=== PATIENT | male | born 1980 | race Caucasian/White ===

== ENCOUNTER 2024-01-12 08:13 | Emergency (ER) | payer BC ==
[2024-01-12 08:18] VITALS: BP 142/78; PULSE 59; RESP 20; TEMP 98.4; BMI 25.1
[2024-01-12] MEDS ORDERED: DOXYCYCLINE HYCLATE 100 MG CAPSULE PO ONE (08:44)
[2024-01-12] MEDS: DOXYCYCLINE HYCLATE 100 MG CAPSULE PO ONE (08:48)
== END 2024-01-12 09:58 | disposition home or self-care (01) ==
LOC: JERFT 08:13
DX: S61.051A Open bite of right thumb without damage to nail, initial encounter (principal); W54.0XXA Bitten by dog, initial encounter
CPT/HCPCS: 73130-TC-RT-FY; 99283-25